=== PATIENT | female | born 1980 | race Caucasian/White ===

== ENCOUNTER 2017-07-31 16:01 | Emergency (ER) | payer OTHER ==
[~2017-07-31] VITALS: Ht 165.1 cm; Wt 69.4 kg
[2017-07-31 16:16] VITALS: BP 128/79; Ht 165.1 cm; Wt 69.4 kg
== END 2017-07-31 16:59 | disposition home or self-care (01) ==
LOC: ED 16:01
DX: S29.012A Strain of muscle and tendon of back wall of thorax, initial encounter (principal); X58.XXXA Exposure to other specified factors, initial encounter; Y93.89 Activity, other specified; Y99.8 Other external cause status; Y92.89 Other specified places as the place of occurrence of the external cause